=== PATIENT | female | born 1985 | race African-American/Black ===

== ENCOUNTER 2024-09-02 09:06 | Inpatient (IN) | payer OTHER, MEDICARE ==
[~2024-09-02] VITALS: Ht 355.6 cm; Wt 93.9 kg
[2024-09-02 10:42] LABS: BASOPHILS % 1.7 % (0.0-2.0); EOSINOPHILS % 6.8 % (0.0-5.0); HEMATOCRIT. 31.9 % (36.0-48.0); HEMOGLOBIN. 10.2 g/dL (12.0-16.0); LYMPHOCYTES % 39.7 % (20.0-50.0); MEAN CORPUSCULAR HEMOGLOBIN 29.9 pg (28.0-32.0); MEAN CORPUSCULAR HGB CONC 31.9 g/dL (31.0-37.0); MEAN CORPUSCULAR VOLUME 93.9 fL (81.0-99.0); MEAN PLATELET VOLUME 8.7 fl (7.4-10.4); MONOCYTES % 10.8 % (2.0-8.0); PLATELET 228 x1000/uL (130-400); RED CELL DISTRIBUTION WIDTH 14.9 % (11.6-14.6); WHITE BLOOD COUNT 3.3 x1000/uL (4.5-11.0)
[2024-09-02 10:49] LABS: CHLORIDE 107 mEq/L (98-107); POTASSIUM 4.6 mEq/L (3.5-5.1); SODIUM 139 mEq/L (136-145)
[2024-09-02 10:50] LABS: CALCIUM 8.2 mg/dL (8.7-10.4); CARBON DIOXIDE 21 mEq/L (21-32)
[2024-09-02 10:55] LABS: GLUCOSE 96 mg/dL (70-105); UREA NITROGEN BLOOD 82 mg/dL (9-23)
[2024-09-02 11:00] LABS: TROPONIN I HIGH SENSITIVITY 36 ng/L (3.0-34)
[2024-09-02 11:03] LABS: CREATININE 13.9 mg/dL (0.6-1.0)
[2024-09-02] MEDS: LOSARTAN 25 MG TABLET PO ONE ×2 (12:33)
[2024-09-02] MEDS: METOPROLOL SUCCINATE 50MG ER TABLET PO ONE ×2 (12:33)
[2024-09-02] MEDS: FUROSEMIDE 40MG TABLET PO ONE (12:33)
[2024-09-02 13:29] LABS: TROPONIN I HIGH SENSITIVITY 37 ng/L (3.0-34)
[2024-09-02] MEDS: HYDRALAZINE 20MG/ML VIAL IV NR (14:28)
[2024-09-02 15:12] VITALS: BP 185/104; PULSE 71; RESP 20; TEMP 36.3624
[2024-09-02 16:00] VITALS: BP 155/86; PULSE 82; RESP 20; TEMP 37.00296; O2SAT 100
[2024-09-02 18:48] LABS: TROPONIN I HIGH SENSITIVITY 37 ng/L (3.0-34)
[2024-09-02 20:00] VITALS: BP 163/86; PULSE 79; RESP 18; TEMP 36.6696; O2SAT 98
[2024-09-02] MEDS ORDERED: FOLI-43 MT (20:05)
[2024-09-02] MEDS ORDERED: CALC667T6 MT (20:05)
[2024-09-02] MEDS ORDERED: METO-539 MT (20:05)
[2024-09-02] MEDS ORDERED: LOSA25TA26 MT (20:05)
[2024-09-02] MEDS ORDERED: METO25TA6 MT (20:05)
[2024-09-02] MEDS ORDERED: FURO20TA4 MT (20:34)
[2024-09-02] MEDS ORDERED: NALOXONE HCL 0.4MG/ML VIAL IV PRN (20:45)
[2024-09-02] MEDS ORDERED: ONDANSETRON HCL 4MG/2ML INJ IV PRN (20:45)
[2024-09-02] MEDS ORDERED: DOCUSATE SODIUM 100MG CAPSULE PO PRN (20:45)
[2024-09-02] MEDS ORDERED: MAGNESIUM/ALUMINUM HYDROXIDE/SIMETHICONE 30ML UDC PO PRN (20:45)
[2024-09-02] MEDS ORDERED: HYDROCODONE/ACETAMINOPHEN 5/325MG TABLET PO PRN (20:45)
[2024-09-02] MEDS ORDERED: IPRATROPIUM/ALBUTEROL 0.5-3(2.5)MG/3ML NEB HHN PRN (20:45)
[2024-09-02] MEDS ORDERED: POTASSIUM CHLORIDE 20MEQ TABLET SR PO PRN (20:45)
[2024-09-02] MEDS ORDERED: ACETAMINOPHEN 325MG TABLET PO PRN (20:45)
[2024-09-02] MEDS: METOPROLOL TARTRATE 50MG TABLET PO SCH (21:26)
[2024-09-03] VITALS (14 sets, daily range): BP systolic 100–169; BP diastolic 56–92; PULSE 64–75; RESP 16–22; TEMP 36.114–36.78072; O2SAT 97–100
[2024-09-03] MEDS: CLONIDINE 0.1MG TABLET PO PRN (00:56)
[2024-09-03 08:08] LABS: EOSINOPHILS % 6.3 % (0.0-5.0); HEMOGLOBIN. 10.9 g/dL (12.0-16.0); LYMPHOCYTES % 39.6 % (20.0-50.0); MEAN CORPUSCULAR HEMOGLOBIN 29.9 pg (28.0-32.0); MEAN CORPUSCULAR HGB CONC 31.2 g/dL (31.0-37.0); MEAN PLATELET VOLUME 8.9 fl (7.4-10.4); MONOCYTES % 10.1 % (2.0-8.0); PLATELET 202 x1000/uL (130-400); RED BLOOD CELL COUNT 3.64 mill/uL (4.2-5.4); RED CELL DISTRIBUTION WIDTH 14.9 % (11.6-14.6); WHITE BLOOD COUNT 4.1 x1000/uL (4.5-11.0)
[2024-09-03 08:26] LABS: CALCIUM 8.2 mg/dL (8.7-10.4); CARBON DIOXIDE 18 mEq/L (21-32); CHLORIDE 107 mEq/L (98-107); POTASSIUM 5.4 mEq/L (3.5-5.1); SODIUM 139 mEq/L (136-145)
[2024-09-03 08:31] LABS: GLUCOSE 85 mg/dL (70-105)
[2024-09-03 08:32] LABS: LDL CHOLESTEROL 124 mg/dL (5-100); TRIGLYCERIDE 195 mg/dL (0-150); UREA NITROGEN BLOOD 83 mg/dL (9-23)
[2024-09-03 08:33] LABS: ALANINE AMINOTRANSFERASE 19 IU/L (10-49); ALBUMIN 3.8 g/dL (3.2-4.8); ASPARTATE AMINOTRANSFERASE 12 IU/L (<34); CHOLESTEROL 199 mg/dL (<200); HDL CHOLESTEROL 27 mg/dL (>65)
[2024-09-03 08:34] LABS: BILIRUBIN TOTAL 0.3 mg/dL (0.1-1.0); PHOSPHORUS 6.9 mg/dL (2.5-4.9); PROTEIN TOTAL 6.5 g/dL (6.0-8.3)
[2024-09-03 08:35] LABS: T4 FREE 0.97 ng/dL (0.89-1.76)
[2024-09-03 09:21] LABS: BILIRUBIN DIRECT < 0.1 mg/dL (<=3.0); CREATININE 14.4 mg/dL (0.6-1.0)
[2024-09-03 09:23] LABS: TROPONIN I HIGH SENSITIVITY 35 ng/L (3.0-34)
[2024-09-03] MEDS: ENOXAPARIN 30MG/0.3ML SYR SUBCUT SCH (09:58)
[2024-09-03] MEDS: CALCIUM ACETATE 667MG CAPSULE PO SCH (09:59)
[2024-09-03] MEDS: LOSARTAN 25 MG TABLET PO SCH (09:59)
[2024-09-03] MEDS: FUROSEMIDE 20MG TABLET PO SCH (09:59)
[2024-09-03] MEDS: FOLIC ACID 1MG TABLET PO SCH (09:59)
[2024-09-03] MEDS ORDERED: ALBUTEROL (0.5%) 2.5MG/0.5ML NEB HHN NR (10:00)
[2024-09-03] MEDS: SODIUM ZIRCONIUM CYCLOSILICATE 10GM/PACKET PO NR (10:15)
[2024-09-03 19:32] LABS: CHLORIDE 103 mEq/L (98-107); POTASSIUM 4.1 mEq/L (3.5-5.1); SODIUM 140 mEq/L (136-145)
[2024-09-03 19:33] LABS: CARBON DIOXIDE 25 mEq/L (21-32)
[2024-09-04] VITALS (7 sets, daily range): BP systolic 134–161; BP diastolic 72–93; PULSE 66–80; RESP 16–18; TEMP 34.66944–37.05852; O2SAT 98–100
[2024-09-04 07:32] LABS: BASOPHILS % 1.7 % (0.0-2.0); EOSINOPHILS % 4.4 % (0.0-5.0); HEMOGLOBIN. 10.1 g/dL (12.0-16.0); LYMPHOCYTES % 55.2 % (20.0-50.0); MEAN CORPUSCULAR HGB CONC 32.5 g/dL (31.0-37.0); MEAN CORPUSCULAR VOLUME 92.5 fL (81.0-99.0); MEAN PLATELET VOLUME 9.1 fl (7.4-10.4); MONOCYTES % 10.9 % (2.0-8.0); NEUTROPHILS % 27.8 % (40.0-76.0); PLATELET 204 x1000/uL (130-400); RED BLOOD CELL COUNT 3.35 mill/uL (4.2-5.4); RED CELL DISTRIBUTION WIDTH 14.8 % (11.6-14.6); WHITE BLOOD COUNT 3.4 x1000/uL (4.5-11.0)
[2024-09-04 07:35] LABS: CHLORIDE 104 mEq/L (98-107); POTASSIUM 4.4 mEq/L (3.5-5.1); SODIUM 139 mEq/L (136-145)
[2024-09-04 07:36] LABS: CARBON DIOXIDE 24 mEq/L (21-32)
[2024-09-04 07:37] LABS: CALCIUM 8.7 mg/dL (8.7-10.4)
[2024-09-04 07:41] LABS: UREA NITROGEN BLOOD 65 mg/dL (9-23)
[2024-09-04 07:42] LABS: GLUCOSE 83 mg/dL (70-105)
[2024-09-04 07:43] LABS: ALANINE AMINOTRANSFERASE 17 IU/L (10-49); ALBUMIN 3.7 g/dL (3.2-4.8); ASPARTATE AMINOTRANSFERASE 11 IU/L (<34)
[2024-09-04 07:44] LABS: BILIRUBIN DIRECT 0.1 mg/dL (<=3.0); BILIRUBIN TOTAL 0.4 mg/dL (0.1-1.0); PROTEIN TOTAL 6.2 g/dL (6.0-8.3)
[2024-09-04 07:50] LABS: CREATININE 12.5 mg/dL (0.6-1.0)
[2024-09-04] MEDS ORDERED: REGADENOSON 0.4 MG/5 ML IV NR (16:30)
[2024-09-04] MEDS: ATORVASTATIN CALCIUM 40MG TABLET PO SCH (21:20)
[2024-09-05] VITALS: BP 147/78; PULSE 67; RESP 18; TEMP 36.3918; O2SAT 99
[2024-09-05 04:00] VITALS: BP 163/79; PULSE 66; RESP 18; TEMP 36.33624; O2SAT 100
[2024-09-05] MEDS ORDERED: REGADENOSON 0.4 MG/5 ML IV ONE (09:46)
[2024-09-05 12:00] VITALS: BP 153/83; PULSE 63; RESP 18; TEMP 36.33624; O2SAT 100
[2024-09-05 16:00] VITALS: BP 144/73; PULSE 70; RESP 18; TEMP 36.55848; O2SAT 100
[2024-09-05] MEDS ORDERED: LIP40 MT (16:54)
[2024-09-05] MEDS ORDERED: AMLO5TAB88 MT (16:54)
[2024-09-05] MEDS ORDERED: METO-539 MT (16:54)
[2024-09-05] MEDS ORDERED: FURO-152 MT (16:54)
[2024-09-05 17:50] VITALS: BP 144/73; PULSE 70; TEMP 97.8; O2SAT 100
[2024-09-05] MEDS ORDERED: AMLODIPINE 5MG TABLET PO SCH (21:00)
== END 2024-09-05 18:25 | disposition home or self-care (01) | DRG 640 ==
LOC: ER 09:06 → 5WST 11:49 → EDBEDREQTM 12:22 → EDBEDREQ 12:22
PROVIDERS: ADMIT Family Medicine Adult Medicine; ATTEND Family Medicine Adult Medicine
PROC: 5A1D70Z Performance of Urinary Filtration, Intermittent, Less than 6 Hours Per Day (ICD-10-PCS; principal; 2024-09-03)
DX: E87.5 Hyperkalemia (principal); N18.6 End stage renal disease; I12.0 Hypertensive chronic kidney disease with stage 5 chronic kidney disease or end stage renal disease; R07.89 Other chest pain; I25.10 Atherosclerotic heart disease of native coronary artery without angina pectoris; E11.22 Type 2 diabetes mellitus with diabetic chronic kidney disease; E78.5 Hyperlipidemia, unspecified; Z99.2 Dependence on renal dialysis; D63.1 Anemia in chronic kidney disease; I25.2 Old myocardial infarction; Z79.899 Other long term (current) drug therapy; Z82.49 Family history of ischemic heart disease and other diseases of the circulatory system; Z87.891 Personal history of nicotine dependence
CPT/HCPCS: 36415; 71045; 78452; 80048; 80051; 80061; 80076; 82962; 83036; 83735; 83880; 84100; 84439; 84484; 85025; 90935; 93005; 93017; 93306; 93970; 99285; A4606; A9500; J0360; J1650; J2785

== ENCOUNTER 2024-12-19 06:25 | Emergency (ER) | payer OTHER, MEDICARE ==
[~2024-12-19] VITALS: Ht 175.3 cm; Wt 91.0 kg
[~2024-12-19 06:25] MED LIST: AMLO5TAB88 MT; CALC667T6 MT; FOLI-43 MT; FURO-152 MT; FURO20TA4 MT; LIP40 MT; METO-539 MT
[2024-12-19 06:26] VITALS: O2SAT 98
[2024-12-19] MEDS: MORPHINE SULFATE 4 MG/ML INJ (FOR IV/IM USE) IV STA (06:55)
[2024-12-19] MEDS: ONDANSETRON HCL 4MG/2ML INJ IV STA (06:55)
[2024-12-19 07:10] LABS: HEMOGLOBIN. 12.9 g/dL (12.0-16.0); MEAN CORPUSCULAR HEMOGLOBIN 30.8 pg (28.0-32.0); MEAN CORPUSCULAR HGB CONC 32.2 g/dL (31.0-37.0); MEAN CORPUSCULAR VOLUME 95.6 fL (81.0-99.0); MEAN PLATELET VOLUME 8.1 fl (7.4-10.4); PLATELET 181 x1000/uL (130-400); RED BLOOD CELL COUNT 4.18 mill/uL (4.2-5.4); RED CELL DISTRIBUTION WIDTH 18.2 % (11.6-14.6); WHITE BLOOD COUNT 5.4 x1000/uL (4.5-11.0)
[2024-12-19 07:12] LABS: DIFFERENTIAL COMMENT 1
[2024-12-19 07:23] LABS: PROTHROMBIN TIME 10.6 sec (9.6-11.0)
[2024-12-19 07:31] LABS: CARBON DIOXIDE 31 mEq/L (21-32); CHLORIDE 99 mEq/L (98-107); POTASSIUM 3.9 mEq/L (3.5-5.1); SODIUM 139 mEq/L (136-145)
[2024-12-19 07:32] LABS: CALCIUM 9.3 mg/dL (8.7-10.4); HCG SCREEN NEGATIVE
[2024-12-19 07:37] LABS: GLUCOSE 149 mg/dL (70-105); UREA NITROGEN BLOOD 33 mg/dL (9-23)
[2024-12-19 07:38] LABS: ALANINE AMINOTRANSFERASE 8 IU/L (10-49); ASPARTATE AMINOTRANSFERASE 12 IU/L (<34)
[2024-12-19 07:39] LABS: ALBUMIN 3.7 g/dL (3.2-4.8); BILIRUBIN DIRECT 0.1 mg/dL (<=3.0); BILIRUBIN TOTAL 0.6 mg/dL (0.1-1.0)
[2024-12-19] MEDS: ONDANSETRON HCL 4MG TABLET PO ONE (07:41)
[2024-12-19] MEDS: OXYCODONE HCL/ACETAMINOPHEN 5/325MG TABLET PO ONE (07:42)
[2024-12-19 07:47] LABS: CREATININE 8.7 mg/dL (0.6-1.0)
[2024-12-19 08:37] LABS: ANISOCYTOSIS 2+; PLATELET ESTIMATE NORMAL
[2024-12-19] MEDS ORDERED: TOPUD PO (10:08)
[2024-12-19 10:17] VITALS: BP 152/50; PULSE 55; RESP 18; TEMP 36.3; O2SAT 100
== END 2024-12-19 10:46 | disposition home or self-care (01) ==
LOC: ER 06:25
DX: R10.30 Lower abdominal pain, unspecified (principal); I12.0 Hypertensive chronic kidney disease with stage 5 chronic kidney disease or end stage renal disease; E11.22 Type 2 diabetes mellitus with diabetic chronic kidney disease; N18.6 End stage renal disease; Z79.899 Other long term (current) drug therapy
CPT/HCPCS: 99284; 74176; 80076; 80048; 84703; 83690; 85025; 85610; 36415; Q0162; J2270; J2405

== ENCOUNTER 2025-08-11 05:32 | Inpatient (IN) | payer MEDICARE, OTHER ==
[~2025-08-11] VITALS: Ht 167.6 cm; Wt 99.6 kg
[~2025-08-11 05:32] MED LIST changes: +TOPUD PO
[2025-08-11 05:35] VITALS: O2SAT 99
[2025-08-11] MEDS ORDERED: SODIUM CHLORIDE 0.9% 1,000 ML IV ONE (05:45)
[2025-08-11 06:17] LABS: HEMATOCRIT. 40.9 % (36.0-48.0); HEMOGLOBIN. 12.9 g/dL (12.0-16.0); MEAN PLATELET VOLUME 8.8 fl (7.4-10.4); PLATELET 203 x1000/uL (130-400); RED BLOOD CELL COUNT 4.46 mill/uL (4.2-5.4); RED CELL DISTRIBUTION WIDTH 19.0 % (11.6-14.6)
[2025-08-11 06:30] LABS: HCG SCREEN NEGATIVE
[2025-08-11 06:32] LABS: UREA NITROGEN BLOOD 40.0 mg/dL (9-23)
[2025-08-11 06:36] LABS: B-HCG QUANTITATIVE 1.0 mIU/mL (<6)
[2025-08-11 06:38] LABS: CREATININE 11.4 mg/dL (0.6-1.0)
[2025-08-11] MEDS: SODIUM CHLORIDE 0.9% 500 ML IV ONE (07:10)
[2025-08-11] MEDS: MORPHINE SULFATE 4 MG/ML INJ (FOR IV/IM USE) IV ONE (07:11)
[2025-08-11] MEDS: ONDANSETRON HCL 4MG/2ML INJ IV ONE (07:12)
[2025-08-11] MEDS: HYDRALAZINE 20MG/ML VIAL IV ONE (07:14)
[2025-08-11 07:53] LABS: ATYPICAL LYMPHOCYTES 1; EOSINOPHILS % MANUAL 11.0 % (0.0-5.0); LYMPHOCYTES % MANUAL 26.0 % (20.0-60.0); MONOCYTES % MANUAL 5.0 % (2.0-8.0); NEUTROPHILS % MANUAL 57.0 % (45.0-75.0); PLATELET ESTIMATE NORMAL
[2025-08-11 07:56] LABS: CLARITY URINE CLEAR (CLEAR); COLOR URINE YELLOW (YELLOW); GLUCOSE URINE TRACE (NEGATIVE); KETONES URINE NEGATIVE (NEGATIVE); LEUKOCYTE ESTERASE URINE NEGATIVE (NEGATIVE); NITRITE URINE NEGATIVE (NEGATIVE); OCCULT BLOOD URINE TRACE (NEGATIVE); PH URINE 8.5 (4.5-8.0); PROTEIN URINE 3+ (NEGATIVE); SPECIFIC GRAVITY URINE 1.009 (1.005-1.030); UROBILINOGEN URINE 0.2 E.U./dL (0.2-1.0)
[2025-08-11 08:39] LABS: BACTERIA URINE NONE SEEN; RBC URINE 0-2 /hpf (0-2); SQUAMOUS EPITHELIAL CELL URINE 1+ /lpf (RARE/1+); WBC URINE 0-2 /hpf (0-2); YEAST URINE NONE SEEN
[2025-08-11 12:00] VITALS: BP 179/89; PULSE 75; RESP 21; TEMP 36.6; O2SAT 100
[2025-08-11 12:36] VITALS: BP 179/89; PULSE 75; RESP 21; TEMP 36.5848
[2025-08-11] MEDS ORDERED: DEXTROSE 50% WATER 50ML SYRINGE IV PRN (13:45)
[2025-08-11] MEDS ORDERED: NA PHOS,M-B/NA PHOS,DI-BA ENEMA 118ML PR PRN (13:45)
[2025-08-11] MEDS ORDERED: ACETAMINOPHEN 325MG TABLET PO PRN (13:45)
[2025-08-11] MEDS ORDERED: IPRATROPIUM/ALBUTEROL 0.5-3(2.5)MG/3ML NEB HHN PRN (13:45)
[2025-08-11] MEDS ORDERED: MAGNESIUM/ALUMINUM HYDROXIDE/SIMETHICONE 30ML UDC PO PRN (13:45)
[2025-08-11] MEDS: INSULIN LISPRO 100 UNITS/ML SUBCUT SCH (14:00)
[2025-08-11] MEDS: FERROUS SULFATE 325MG TABLET PO SCH (14:00)
[2025-08-11] MEDS: BLOOD SUGAR DIAGNOSTIC STRIP TEST SCH (14:21)
[2025-08-11] MEDS ORDERED: HYDRALAZINE 20MG/ML VIAL IV PRN (15:00)
[2025-08-11] MEDS: ACETAMINOPHEN 1000MG/100ML 100 ML IV NR (15:16)
[2025-08-11 16:00] VITALS: BP 194/92; PULSE 77; RESP 20; TEMP 36.1; O2SAT 99
[2025-08-11] MEDS: CLONIDINE 0.1MG TABLET PO PRN (17:54)
[2025-08-11] MEDS: ACETAMINOPHEN 325MG TABLET PO PRN (18:10)
[2025-08-11 20:00] VITALS: BP 144/85; PULSE 67; RESP 20; TEMP 36.3; O2SAT 98
[2025-08-11] MEDS: FAMOTIDINE 20MG TABLET PO SCH (21:00)
[2025-08-11] MEDS: METOPROLOL TARTRATE 50MG TABLET PO SCH (21:15)
[2025-08-11 22:56] LABS: *AMPHETAMINES SCREEN URINE NEGATIVE (NEGATIVE); *BARBITURATES SCREEN URINE NEGATIVE (NEGATIVE); *BENZODIAZEPINES SCREEN URINE NEGATIVE (NEGATIVE); *COCAINE SCREEN URINE NEGATIVE (NEGATIVE); METHADONE URINE SCREEN NEGATIVE (NEGATIVE); OPIATES URINE SCREEN NEGATIVE (NEGATIVE); PHENCYCLIDINE URINE SCREEN NEGATIVE (NEGATIVE)
[2025-08-11 22:57] LABS: CANNABINOID URINE SCREEN NEGATIVE (NEGATIVE); ECSTASY MDMA SCREEN URINE NEGATIVE (NEGATIVE)
[2025-08-12] VITALS (16 sets, daily range): BP systolic 147–192; BP diastolic 71–93; PULSE 54–62; RESP 16–22; TEMP 36.2–36.61404; O2SAT 97–100
[2025-08-12 01:25] LABS: PROTEIN TOTAL 7.6 g/dL (6.0-8.3)
[2025-08-12 01:26] LABS: ASPARTATE AMINOTRANSFERASE 14 IU/L (<34); BILIRUBIN DIRECT 0.1 mg/dL (<=3.0); BILIRUBIN TOTAL 0.5 mg/dL (0.1-1.0)
[2025-08-12 01:46] LABS: TROPONIN I HIGH SENSITIVITY 107 ng/L (3.0-34)
[2025-08-12 01:51] LABS: PHOSPHORUS 9.3 mg/dL (2.5-4.9)
[2025-08-12 06:49] LABS: BASOPHILS % 1.1 % (0.0-2.0); EOSINOPHILS % 13.5 % (0.0-5.0); HEMATOCRIT. 39.5 % (36.0-48.0); HEMOGLOBIN. 12.6 g/dL (12.0-16.0); LYMPHOCYTES % 32.8 % (20.0-50.0); MEAN PLATELET VOLUME 8.7 fl (7.4-10.4); MONOCYTES % 8.9 % (2.0-8.0); NEUTROPHILS % 43.7 % (40.0-76.0); PLATELET 199 x1000/uL (130-400); RED BLOOD CELL COUNT 4.27 mill/uL (4.2-5.4); RED CELL DISTRIBUTION WIDTH 19.4 % (11.6-14.6)
[2025-08-12 06:58] LABS: TRIGLYCERIDE 123.0 mg/dL (0-150); UREA NITROGEN BLOOD 46.0 mg/dL (9-23)
[2025-08-12 06:59] LABS: LDL CHOLESTEROL 130.0 mg/dL (5-100)
[2025-08-12 08:03] LABS: CREATININE 13.2 mg/dL (0.6-1.0)
[2025-08-12] MEDS ORDERED: LOSARTAN 25 MG TABLET PO SCH (09:00)
[2025-08-12] MEDS: DOCUSATE SODIUM 100MG CAPSULE PO PRN (09:29)
[2025-08-12] MEDS: AMLODIPINE 5MG TABLET PO SCH (10:30)
[2025-08-12 12:08] LABS: HEPATITIS A AB IGM NEGATIVE (Negative)
[2025-08-12 12:09] LABS: HEPATITIS B CORE AB IGM NEGATIVE (Negative); HEPATITIS C AB NON REACTIVE (Neg) (Negative)
[2025-08-12] MEDS: MORPHINE SULFATE 4 MG/ML INJ (FOR IV/IM USE) IV NR (15:26)
[2025-08-12] MEDS ORDERED: NALOXONE HCL 0.4MG/ML VIAL IV PRN (16:45)
[2025-08-12] MEDS: ONDANSETRON HCL 4MG/2ML INJ IV PRN (20:52)
[2025-08-12] MEDS: HYDRALAZINE HCL 25MG TABLET PO SCH (21:24)
[2025-08-13 00:01] VITALS: BP 150/63; PULSE 59; RESP 16; TEMP 36.4; O2SAT 100
[2025-08-13 04:00] VITALS: BP 170/67; PULSE 58; RESP 18; TEMP 36.3; O2SAT 98
[2025-08-13 06:21] LABS: BASOPHILS % 1.3 % (0.0-2.0); EOSINOPHILS % 14.3 % (0.0-5.0); HEMATOCRIT. 38.1 % (36.0-48.0); HEMOGLOBIN. 12.1 g/dL (12.0-16.0); LYMPHOCYTES % 34.2 % (20.0-50.0); MEAN PLATELET VOLUME 8.7 fl (7.4-10.4); MONOCYTES % 10.1 % (2.0-8.0); NEUTROPHILS % 40.1 % (40.0-76.0); PLATELET 169 x1000/uL (130-400); RED BLOOD CELL COUNT 4.12 mill/uL (4.2-5.4); RED CELL DISTRIBUTION WIDTH 19.0 % (11.6-14.6)
[2025-08-13 06:44] LABS: UREA NITROGEN BLOOD 38 mg/dL (9-23)
[2025-08-13 08:00] VITALS: BP 168/72; PULSE 57; RESP 20; TEMP 36.5; O2SAT 98
[2025-08-13 08:29] LABS: CREATININE 11.4 mg/dL (0.6-1.0)
[2025-08-13 08:33] LABS: PHOSPHORUS 9.1 mg/dL (2.5-4.9)
[2025-08-13] MEDS: NIFEDIPINE XL 30MG TAB PO SCH (09:47)
[2025-08-13 12:00] VITALS: BP_SYST 156; BP_SYST 158; BP_SYST 172; BP_DIAS 75; BP_DIAS 78; BP_DIAS 83; PULSE 57; RESP 16; TEMP 36.6; O2SAT 99
[2025-08-13] MEDS ORDERED: NIFE-33 PO (15:40)
[2025-08-13] MEDS ORDERED: SEVE800T8 PO (15:40)
[2025-08-13] MEDS ORDERED: FERR-63 PO (15:40)
[2025-08-13] MEDS ORDERED: FAMO20TA8 PO (15:40)
[2025-08-13] MEDS ORDERED: HYDR25TA78 PO (15:40)
[2025-08-13] MEDS ORDERED: METO-539 PO (15:40)
[2025-08-13 16:00] VITALS: BP 158/78; PULSE 55; RESP 18; TEMP 36.6; O2SAT 100
[2025-08-13 16:02] VITALS: BP 156/75; PULSE 57; RESP 20; TEMP 97.7
[2025-08-13] MEDS ORDERED: SEVELAMER CARBONATE 800 MG TABLET PO SCH (18:10)
== END 2025-08-13 18:07 | disposition home or self-care (01) | DRG 640 ==
LOC: ER 05:32 → 7WST 08:06 → EDBEDREQTM 08:11 → EDBEDREQ 08:11
PROVIDERS: ADMIT Hospitalist; ATTEND Hospitalist
PROC: 5A1D70Z Performance of Urinary Filtration, Intermittent, Less than 6 Hours Per Day (ICD-10-PCS; principal; 2025-08-12)
DX: E87.5 Hyperkalemia (principal); N18.6 End stage renal disease; K92.0 Hematemesis; I12.0 Hypertensive chronic kidney disease with stage 5 chronic kidney disease or end stage renal disease; I16.1 Hypertensive emergency; Z99.2 Dependence on renal dialysis; E11.22 Type 2 diabetes mellitus with diabetic chronic kidney disease; R10.30 Lower abdominal pain, unspecified; N83.201 Unspecified ovarian cyst, right side; D25.9 Leiomyoma of uterus, unspecified; I25.2 Old myocardial infarction; Z88.5 Allergy status to narcotic agent
CPT/HCPCS: 36415; 71045; 76830; 76856; 80048; 80061; 80076; 80305; 81003; 82962; 83036; 83735; 84100; 84443; 84484; 84702; 84703; 85025; 86705; 86709; 86850; 86900; 87340; 90935; 93005; 93970; 99285; J0360; J1815; J2270; J2405; J7030; J7040; J0131